=== PATIENT | female | born 1975 | race Caucasian/White ===

== ENCOUNTER 2018-11-04 10:39 | Outpatient (CLI) | payer OTHER ==
[~2018-11-04 10:39] MED LIST: FOLIC ACID1 MG PO
== END 2018-11-04 11:50 | disposition home or self-care (01) ==
LOC: PRENATAL 10:39
DX: O26.892 Other specified pregnancy related conditions, second trimester (principal); O09.512 Supervision of elderly primigravida, second trimester; O09.812 Supervision of pregnancy resulting from assisted reproductive technology, second trimester

== ENCOUNTER 2018-11-21 08:22 | Outpatient (CLI) | payer OTHER | END 2018-11-21 09:30 | disposition home or self-care (01) | LOC: PRENATAL 08:22 | DX: O99.89 Other specified diseases and conditions complicating pregnancy, childbirth and the puerperium (principal); O09.511 Supervision of elderly primigravida, first trimester ==

== ENCOUNTER 2018-11-21 13:15 | Outpatient (CLI) | payer OTHER | END 2018-11-21 13:28 | disposition home or self-care (01) | LOC: LAB 13:15 | DX: Z34.00 Encounter for supervision of normal first pregnancy, unspecified trimester (principal) ==

== ENCOUNTER → 2019-01-09 | Outpatient (CLI) | payer OTHER | END | disposition home or self-care (01) | LOC: PRENATAL 08:00 | DX: O99.89 Other specified diseases and conditions complicating pregnancy, childbirth and the puerperium (principal); O98.112 Syphilis complicating pregnancy, second trimester; O09.512 Supervision of elderly primigravida, second trimester ==

== ENCOUNTER → 2019-04-16 | Outpatient (CLI) | payer OTHER | END | disposition home or self-care (01) | LOC: PRENATAL 08:24 | DX: O99.89 Other specified diseases and conditions complicating pregnancy, childbirth and the puerperium (principal); O09.519 Supervision of elderly primigravida, unspecified trimester; O36.8199 Decreased fetal movements, unspecified trimester, other fetus; O35.0XX0 Maternal care for (suspected) central nervous system malformation in fetus, not applicable or unspecified; O26.849 Uterine size-date discrepancy, unspecified trimester ==

== ENCOUNTER 2019-05-12 12:16 | Inpatient (IN) | payer OTHER ==
[~2019-05-12] VITALS: Ht 156.2 cm; Wt 2.7 kg
[2019-05-20] MEDS ORDERED: PRENATAL TABLE1 EAC1 PO (05:43)
[2019-05-20] MEDS ORDERED: SYNTHROID100 MCG PO (05:44)
[2019-05-20] MEDS ORDERED: PEPCID AC20 MG PO (05:45)
[2019-05-20] MEDS ORDERED: AMPICILLIN SOD500 MG PO (05:45)
[2019-05-20] MEDS ORDERED: COLACE100 MG PO (05:45)
[2019-05-23] MEDS ORDERED: PERCOCET 5-3251 EACH PO (09:13)
== END 2019-05-23 11:34 | disposition home or self-care (01) | DRG 788 ==
LOC: LDR 05-20 05:26 → OB/GYN 05-20 19:01
PROVIDERS: ADMIT Specialist
PROC: 4A1HXFZ Monitoring of Products of Conception, Cardiac Rhythm, External Approach (ICD-10-PCS; 2019-05-20)
PROC: 3E033VJ Introduction of Other Hormone into Peripheral Vein, Percutaneous Approach (ICD-10-PCS; 2019-05-20)
PROC: 10D00Z1 Extraction of Products of Conception, Low, Open Approach (ICD-10-PCS; principal; 2019-05-20 17:00)
DX: O65.4 Obstructed labor due to fetopelvic disproportion, unspecified (principal); O14.94 Unspecified pre-eclampsia, complicating childbirth; Z3A.38 38 weeks gestation of pregnancy; Z37.0 Single live birth; O99.284 Endocrine, nutritional and metabolic diseases complicating childbirth; E03.9 Hypothyroidism, unspecified

== ENCOUNTER → 2019-05-19 | Outpatient (CLI) | payer OTHER ==
[~2019-05-19] MED LIST changes: +AMPICILLIN SOD500 MG PO; +COLACE100 MG PO; +PEPCID AC20 MG PO; +PERCOCET 5-3251 EACH PO; +PRENATAL TABLE1 EAC1 PO; +SYNTHROID100 MCG PO
== END | disposition home or self-care (01) ==
LOC: MAMO-SONO 09-05 09:15 → PRENATAL 08:30
DX: O26.843 Uterine size-date discrepancy, third trimester (principal); O36.8193 Decreased fetal movements, unspecified trimester, fetus 3; O09.813 Supervision of pregnancy resulting from assisted reproductive technology, third trimester; O09.513 Supervision of elderly primigravida, third trimester; O99.283 Endocrine, nutritional and metabolic diseases complicating pregnancy, third trimester; O99.89 Other specified diseases and conditions complicating pregnancy, childbirth and the puerperium; O35.0XX3 Maternal care for (suspected) central nervous system malformation in fetus, fetus 3